=== PATIENT | male | born 1975 | race African-American/Black ===

== ENCOUNTER 2016-05-29 00:49 | Emergency (ER) | payer OTHER ==
[~2016-05-29] VITALS: Ht 180.3 cm; Wt 80.7 kg
== END 2016-05-29 01:11 ==
LOC: ER 00:53
DX: Z00.8 Encounter for other general examination (principal); E11.9 Type 2 diabetes mellitus without complications
CPT/HCPCS: 82962; 99283; A4606

== ENCOUNTER 2018-04-02 14:26 | Emergency (ER) | payer OTHER ==
[~2018-04-02] VITALS: Ht 180.3 cm; Wt 81.6 kg
[2018-04-02 14:26] VITALS: BP 138/75
--- NOTE | 2018-04-02 14:34 | NUR ---
BIB [facility], LEAKING COLOSTOMY BAG. APPEARS VERY ANXIOUS. PROVIDED PT WITH SOAP, WARM WATER, TOWELS FOR SELF-CARE. ALSO PROVIDED NEW COLOSTOMY BAG.
--- NOTE | 2018-04-02 15:39 | NUR ---
DR VILLAGRAN AT BEDSIDE
[2018-04-02] MEDS ORDERED: MORPHINE SULFATE INJ 2 MG/ML DISP.SYRIN IV ONE (16:00)
[2018-04-02] MEDS ORDERED: MORPHINE SULFATE INJ 4 MG/ML DISP.SYRIN ONE (16:00)
--- NOTE | 2018-04-02 16:47 | NUR ---
PT REFUSING BLOOD DRAW AT THIS TIME. WANTS TO WAIT FOR PAIN MED TO WORK
[2018-04-02] MEDS ORDERED: IOHEXOL-300 100 ML VIAL IV ONE (17:24)
[2018-04-02] MEDS ORDERED: IV NS 0.9% 250 ML IV ONE (17:24)
--- NOTE | 2018-04-02 17:25 | NUR ---
PT IN BATHROOM FOR LONG PERIOD OF TIME DOING NOTHING. MADE MULTIPLE ATTEMPTS TO GET HIM BACK TO BED. AFTER GETTING HIM BACK TO BED, FOUND HIM IN BATHROOM AGAIN. FIRMLY ENCOURAGED HIM BACK TO BED SO WE CAN DRAW LABS AND FULFILL IMAGING ORDERS. Addendum: 04/02/18 at 1905 by ROMEOUWYUN UNABLE TO OBTAIN VITALS DUE TO PT NOT STAYING IN BED
[2018-04-02] MEDS ORDERED: CT SWABBABLE VALVE TRANS SET 1 EA INFUS.SET MC ONE (17:26)
--- NOTE | 2018-04-02 18:01 | NUR ---
PT REMOVED IV. GATHERING ITEMS TO LEAVE AMA.
--- NOTE | 2018-04-02 18:13 | NUR ---
Patient does not wish to proceed with medical care recommended by Dr. VILLAGRAN. Patient given information related to possible complications, up to and including , which could occur as a result of leaving the hospital at this time. Patient verbalizes understanding of risks involved due to leaving against medical advice. Patient has signed AMA form.
== END 2018-04-02 18:15 | disposition left against medical advice (07) ==
LOC: ER 14:30
DX: R10.84 Generalized abdominal pain (principal); E11.9 Type 2 diabetes mellitus without complications; Z93.3 Colostomy status
CPT/HCPCS: 96374; 99283; A4362; A4606; J2270; J7050; Q9967

== ENCOUNTER 2021-04-01 00:57 | Emergency (ER) | payer OTHER ==
--- NOTE | 2021-04-01 01:15 | NUR ---
PT WALKED OUT WITHOUT BEING TRIAGED
== END 2021-04-01 01:17 | disposition home or self-care (01) ==
LOC: ER 00:58
DX: Z53.21 Procedure and treatment not carried out due to patient leaving prior to being seen by health care provider (principal)